=== PATIENT | female | born 1975 | race Two or more races ===

== ENCOUNTER 2017-12-04 18:13 | Emergency (ER) | payer OTHER ==
[2017-12-04 18:31] LABS: URINE APPEARANCE Clear; URINE BILIRUBIN Negative (NEGATIVE); URINE COLOR Yellow; URINE GLUCOSE (UA) Negative (NEGATIVE); URINE KETONE Trace (NEGATIVE); URINE NITRITE Negative (NEGATIVE); URINE PROTEIN Trace (NEGATIVE); URINE UROBILINOGEN 0.2 (0.2-1.0)
[2017-12-04 18:32] LABS: URINE LEUK ESTERASE TRACE (NEGATIVE)
[2017-12-04 18:43] LABS: EPI CELLS FEW /HPF; URINE BACTERIA FEW /hpf (NEGATIVE)
[2017-12-04 18:44] VITALS: BP 138/88; TEMP 98.9; BMI 24.3
[2017-12-04] MEDS ORDERED: ACETAMINOPHEN 325 MG TABLET (FP) PO ONE (18:44)
[2017-12-04] MEDS ORDERED: SODIUM CHLORIDE 1,000 ML IV ONE (18:44)
--- NOTE | 2017-12-04 18:48 | PDOC ---
Attending Attestation - HPI HPI: 12/04/17 19:12 The patient is a 41 year old female, with a significant PMH of chronic back pain, who presents to the emergency department with an onset of left intermittent flank pain that began yesterday. The patient states she has had 5- 6 episodes since yesterday that lasted for a few seconds with a severity of 7/ 10. The patient also notes she has been constipated and has been urinating more frequently. Her last menstrual period was 11/28/2017. The patient denies chest pain, shortness of breath, headache and dizziness. Denies fever, chills, nausea, vomit, diarrhea. Denies dysuria, urgency and hematuria. Allergies: NKDA Past surgical history: C- section (6 years ago) Social history: None reported PCP: Evin Taylor Documentation prepared by Nancy Raman, acting as medical staff credentialing coordinator for Ramon Bassett MD. <Nancy Raman - Last Filed: 12/04/17 19:12> - Resident Resident Name: Fox Richardson - ED Attending Attestation I have performed the following: I have examined & evaluated the patient, The case was reviewed & discussed with the resident, I agree w/resident's findings & plan, Exceptions are as noted - Physicial Exam PE: 12/04/17 19:11 GENERAL: The patient is awake, alert, and fully oriented, Nontoxic - in no acute distress. HEAD: Normocephalic, atraumatic. EYES: extraocular movements intact, sclera anicteric, conjunctiva clear. ENT: Normal voice, Moist mucous membranes. NECK: Normal range of motion, supple LUNGS: Breath sounds equal, clear to auscultation bilaterally. No wheezes, no rhonchi, no rales. HEART: tachycardic, normal S1 and S2 without murmur, rub or gallop. ABDOMEN: Soft, nontender, No guarding, no rebound. No CVA tenderness EXTREMITIES: Normal range of motion, no edema. NEUROLOGICAL: No facial assymetry, Normal speech, PSYCH: anxious appearing SKIN: Warm, Dry, normal turgor, - Medical Decision Making 12/04/17 19:09 suspect kidney stones pts HR elevated, suspect kindey stone UA noted for hematuria will get blood work to further evlauat her tachycadia - but suspect it may be due to anxiety as pt seemed very concerned about the reason for her hematuria will obtain CT abdomen fluids for hydration tylenol for pain will sign pt out to dr. remy for reasessment and fu <Ramon Bassett - Last Filed: 12/04/17 19:13> Heart Score/ECG Review - ECG Impressions Comment:: 12/04/17 19:13 Twelve-lead EKG was performed and reviewed by me. There is normal sinus rhythm with a rate of 114 The axis is normal. The intervals are normal. There is normal R wave progression There are no ST or T wave abnormalities Impression: sinus tachycardia <Ramon Bassett - Last Filed: 12/04/17 19:13>
[2017-12-04] MEDS ORDERED: ACETAMINOPHEN 325 MG TABLET (FP) ONE (18:56)
[2017-12-04 19:15] LABS: BASO % 1.7 % (0-2.0); EOS % 2.8 % (0-4.5); HEMATOCRIT 36.7 % (32.4-45.2); HEMOGLOBIN 11.9 GM/dl (10.7-15.3); LYMPH % 32.5 % (8-40); MCH 26.8 pg (25.7-33.7); MCHC 32.3 g/dl (32.0-36.0); MEAN CELL VOLUME 82.9 fl (80-96); MEAN PLT VOLUME 8.7 fl (7.5-11.1); MONO % 6.8 % (3.8-10.2); NEUT % 56.2 % (42.8-82.8); PLATELET COUNT 330 K/MM3 (134-434); RBC 4.43 M/mm3 (3.60-5.2); WHITE BLOOD COUNT 5.4 K/mm3 (4.0-10.8)
--- NOTE | 2017-12-04 19:17 | PDOC ---
History of Present Illness - General Chief Complaint: Pain Stated Complaint: LEFT LOW BACK, SIDE PAIN Time Seen by Provider: 12/04/17 18:20 History Source: Patient Exam Limitations: No Limitations - History of Present Illness Initial Comments: 12/04/17 19:16 Ms. Candelaria is a 41 yo F with a hx of chronic low back pain who presents with left flank pain. She states the pain began yesterday with sudden onset. The pain lasts for a few seconds and occurs in the left flank without radiation to the groin. Today it is 7/10 whereas yesterday it was 8/10. It occurs approximately half a dozen times throughout the day without aggravating or relieving factors. Endorses having constipation and polyuria. Denies the following: fever, recent visual changes, headaches, nausea, vomiting, chest pain , SOB, anterior abdominal pain, dysuria, hematuria, hematochezia, melena, diarrhea, and leg pain/swelling. Pmhx: Chronic low back pain Shx: C/S 1999 Meds: None Allergies: NKDA Social: Denies tobacco, alcohol, and drug use. 12/04/17 19:17 12/04/17 22:07 Past History - Past Medical History Allergies/Adverse Reactions: Allergies Allergy/AdvReac Type Severity Reaction Status Date / Time No Known Allergies Allergy Verified 12/04/17 18:15 Home Medications: Ambulatory Orders NK [No Known Home Medication] 12/04/17 COPD: No - Suicide/Smoking/Psychosocial Hx Smoking History: Never smoked Have you smoked in the past 12 months: No Number of Cigarettes Smoked Daily: 0 Information on smoking cessation initiated: No Hx Alcohol Use: No Drug/Substance Use Hx: No Substance Use Type: None Review of Systems - Review of Systems Constitutional: No: Chills, Diaphoresis, Fever, Weakness HEENTM: No: Eye Pain, Recent change in vision, Nose Pain, Throat Pain, Mouth Pain Respiratory: No: Cough, Shortness of Breath Cardiac (ROS): No: Chest Pain, Palpitations, Syncope, Chest Tightness ABD/GI: Yes: Constipated. No: Diarrhea, Nausea, Poor Appetite, Poor Fluid Intake, Rectal Bleeding, Vomiting, Abdominal cramping, Tarry Stools : Yes: Frequency, Flank Pain (left). No: Burning, Dysuria, Hematuria, Incontinence Musculoskeletal: Yes: Back Pain Integumentary: No: Pallor, Rash Neurological: No: Headache, Numbness, Paresthesia, Tremors, Weakness, Ataxia, Dizziness Psychiatric: No: Stressors Endocrine: No: Unexplained Weight Gain Hematologic/Lymphatic: No: Anemia *Physical Exam - Vital Signs Last Vital Signs Temp Pulse Resp BP Pulse Ox 98.9 F 118 H 20 138/88 100 12/04/17 18:13 12/04/17 18:13 12/04/17 18:13 12/04/17 18:13 12/04/17 18:13 - Physical Exam General Appearance: Yes: Nourished, Appropriately Dressed HEENT: positive: EOMI, CHLOE Neck: positive: Trachea midline. negative: Lymphadenopathy (R), Lymphadenopathy (L) Respiratory/Chest: positive: Lungs Clear, Normal Breath Sounds Cardiovascular: positive: Regular Rhythm, S1, S2, Tachycardia. negative: Systolic Murmur Vascular Pulses: Dorsalis-Pedis (R): 3+, Doralis-Pedis (L): 3+ Gastrointestinal/Abdominal: positive: Normal Bowel Sounds. negative: Tender Lymphatic: negative: Adenopathy Musculoskeletal: positive: Normal Inspection, CVA Tenderness (L). negative: CVA Tenderness (R) Extremity: positive: Normal Capillary Refill, Normal Inspection, Normal Range of Motion Integumentary: positive: Normal Color, Dry, Warm Neurologic: positive: city comptroller II-XII NML intact, Fully Oriented, Alert, Normal Mood/ Affect, Normal Response, Motor Strength 5/5 ED Treatment Course - LABORATORY CBC & Chemistry Diagram: 12/04/17 19:00 12/04/17 19:00 - ADDITIONAL ORDERS Additional order review: Laboratory Results 12/04/17 12/04/17 18:21 18:21 Urine Color Yellow Urine Appearance Clear Urine pH 6.0 Ur Specific [place] >= 1.030 H Urine Protein Trace Urine Glucose (UA) Negative Urine Ketones Trace Urine Blood 1+ H Urine Nitrite Negative Urine Bilirubin Negative Urine Urobilinogen 0.2 Ur Leukocyte Esterase Trace H Urine RBC 2-5 Urine WBC 2-5 Ur Epithelial Cells Few Urine Bacteria Few Urine HCG, Qual Negative - RADIOLOGY Radiology Studies Ordered: Category Date Time Status ABDOMEN & PELVIS CT W/O CONTR [CT] Stat CT Scan 12/04/17 18:53 Ordered - Medications Given in the ED: ED Medications Discontinued Medications Generic Name Dose Route Start Last Admin Trade Name Freq PRN Reason Stop Dose Admin Acetaminophen 975 mg 12/04/17 18:44 12/04/17 19:05 Tylenol - PO 12/04/17 18:45 975 mg ONCE ONE Administration Medical Decision Making - Medical Decision Making 41 yo F with hx of chronic back pain presenting with left flank pain concerning for nephrolithiasis. Initial vitals Initial Vital Signs Temp Pulse Resp BP Pulse Ox 98.9 F 118 H 20 138/88 100 12/04/17 18:13 12/04/17 18:13 12/04/17 18:13 12/04/17 18:13 12/04/17 18:13 Work up: Laboratory Tests 12/04/17 12/04/17 12/04/17 18:21 18:21 19:00 WBC 5.4 RBC 4.43 Hgb 11.9 Hct 36.7 MCV 82.9 MCH 26.8 MCHC 32.3 RDW 14.0 Plt Count 330 MPV 8.7 Absolute Neuts (auto) 3.0 Neutrophils % 56.2 Lymphocytes % 32.5 Monocytes % 6.8 Eosinophils % 2.8 Basophils % 1.7 Sodium Potassium Chloride Carbon Dioxide Anion Gap BUN Creatinine Creat Clearance w eGFR Random Glucose Calcium Total Bilirubin AST ALT Alkaline Phosphatase Total Protein Albumin Urine Color Yellow Urine Appearance Clear Urine pH 6.0 Ur Specific [place] >= 1.030 H Urine Protein Trace Urine Glucose (UA) Negative Urine Ketones Trace Urine Blood 1+ H Urine Nitrite Negative Urine Bilirubin Negative Urine Urobilinogen 0.2 Ur Leukocyte Esterase Trace H Urine RBC 2-5 Urine WBC 2-5 Ur Epithelial Cells Few Urine Bacteria Few Urine HCG, Qual Negative 12/04/17 19:00 WBC RBC Hgb Hct MCV MCH MCHC RDW Plt Count MPV Absolute Neuts (auto) Neutrophils % Lymphocytes % Monocytes % Eosinophils % Basophils % Sodium 136 Potassium 3.6 Chloride 104 Carbon Dioxide 23 Anion Gap 9 BUN 19 H Creatinine 0.8 Creat Clearance w eGFR > 60 Random Glucose 125 H Calcium 8.8 Total Bilirubin 0.3 AST 21 ALT 13 Alkaline Phosphatase 50 Total Protein 8.1 Albumin 3.9 Urine Color Urine Appearance Urine pH Ur Specific [place] Urine Protein Urine Glucose (UA) Urine Ketones Urine Blood Urine Nitrite Urine Bilirubin Urine Urobilinogen Ur Leukocyte Esterase Urine RBC Urine WBC Ur Epithelial Cells Urine Bacteria Urine HCG, Qual Ordered a CT abdomen and pelvis without contrast due to presence of blood in the UA. Concerned initially for the tachycardia, but patient admits to extreme anxiety in healthcare settings. Was given 1 L of NS and tylenol for pain control. 12/04/17 19:19 Transfer of care to Dr. Kat. *DC/Admit/Observation/Transfer Diagnosis at time of Disposition: Flank pain - Discharge Dispostion Disposition: HOME Condition at time of disposition: Stable - Referrals Referrals: Evin Taylor MD [Primary Care Provider] - 1 week - Patient Instructions Printed Discharge Instructions: DI for Flank Pain Additional Instructions: Drink plenty of water Ibuprofen/naproxen/acetaminophen as needed for persistent pain Return to ER if you have persistent severe pain We will call you if urine culture indicates bladder infection Follow-up with within the next week - Post Discharge Activity
--- NOTE | 2017-12-04 19:21 | PDOC ---
*Physical Exam - Vital Signs Last Vital Signs Temp Pulse Resp BP Pulse Ox 98.9 F 118 H 20 138/88 100 12/04/17 18:13 12/04/17 18:13 12/04/17 18:13 12/04/17 18:13 12/04/17 18:13 ED Treatment Course - LABORATORY CBC & Chemistry Diagram: 12/04/17 19:00 12/04/17 19:00 - ADDITIONAL ORDERS Additional order review: Laboratory Results 12/04/17 12/04/17 18:21 18:21 Urine Color Yellow Urine Appearance Clear Urine pH 6.0 Ur Specific [place] >= 1.030 H Urine Protein Trace Urine Glucose (UA) Negative Urine Ketones Trace Urine Blood 1+ H Urine Nitrite Negative Urine Bilirubin Negative Urine Urobilinogen 0.2 Ur Leukocyte Esterase Trace H Urine RBC 2-5 Urine WBC 2-5 Ur Epithelial Cells Few Urine Bacteria Few Urine HCG, Qual Negative 12/04/17 19:00 RBC 4.43 MCV 82.9 MCHC 32.3 RDW 14.0 MPV 8.7 Neutrophils % 56.2 Lymphocytes % 32.5 Monocytes % 6.8 Eosinophils % 2.8 Basophils % 1.7 - Medications Given in the ED: ED Medications Discontinued Medications Generic Name Dose Route Start Last Admin Trade Name Freq PRN Reason Stop Dose Admin Acetaminophen 975 mg 12/04/17 18:44 12/04/17 19:05 Tylenol - PO 12/04/17 18:45 975 mg ONCE ONE Administration Progress Note - Progress Note Progress Note: Care of this patient received from . Laboratory evaluation including CBC and chemistry profile is essentially normal except for mild prerenal azotemia with BUN of 19 and a creatinine of 1.1 Abdominal/pelvic CT performed to rule out kidney stone CT shows no evidence of hydronephrosis or hydroureter. No evidence of kidney stones present. No other abnormality seen Results discussed with the patient and her . Although patient may have had a small stone pass without causing hydro-nephrosis /ureter, it is more likely that the pain may be related to musculoskeletal strain. Because of the RBCs/WBCs seen on urinalysis, urine culture and sensitivity was sent. Patient is aware that urine culture and sensitivity takes at least 48 hours to complete and that she will be called, with antibiotic transmitted to pharmacy if there is evidence of UTI Patient discharged with instructions to drink plenty of water; she can take over -the-counter NSAIDs or acetaminophen as needed for pain. She should return to the emergency room if she has persistent, severe pain. She should follow-up with Dr. Taylor within the next week *DC/Admit/Observation/Transfer Diagnosis at time of Disposition: Flank pain - Discharge Dispostion Disposition: HOME Condition at time of disposition: Stable - Referrals Referrals: Evin Taylor MD [Primary Care Provider] - 1 week - Patient Instructions Printed Discharge Instructions: DI for Flank Pain Additional Instructions: Drink plenty of water Ibuprofen/naproxen/acetaminophen as needed for persistent pain Return to ER if you have persistent severe pain We will call you if urine culture indicates bladder infection Follow-up with within the next week - Post Discharge Activity
[2017-12-04 19:29] LABS: ALBUMIN 3.9 g/dl (3.5-5.0); ALK PHOS 50 U/L (32-92); ANION GAP 9 MMOL/L (8-16); BILIRUBIN,TOTAL 0.3 mg/dl (0.2-1.0); BLOOD UREA NITROGEN 19 mg/dl (7-18); CALCIUM 8.8 mg/dl (8.4-10.2); CHLORIDE 104 mmol/L (98-107); CO2 23 mmol/L (22-28); CREATININE 0.8 mg/dl (0.6-1.3); GLUCOSE,RANDOM 125 mg/dl (74-106); POTASSIUM 3.6 mmol/L (3.5-5.1); SGOT/AST 21 U/L (10-42); SGPT/ALT 13 U/L (10-40); SODIUM 136 mmol/L (136-145); TOT PROT 8.1 g/dl (6.4-8.3)
[2017-12-04 20:58] VITALS: PULSE 90
--- NOTE | 2017-12-06 14:15 | EKG ---
Test Reason : Blood Pressure : / mmHG Vent. Rate : 114 BPM Atrial Rate : 114 BPM P-R Int : 134 ms QRS Dur : 080 ms QT Int : 344 ms P-R-T Axes : 070 043 022 degrees QTc Int : 474 ms SINUS TACHYCARDIA POSSIBLE LEFT ATRIAL ENLARGEMENT BORDERLINE ECG WHEN COMPARED WITH ECG OF 05-NOV-2007 20:18, NO SIGNIFICANT CHANGE WAS FOUND Confirmed by WILLIAM VEGA MD ([id number]) on 12/06/2017 2:15:32 PM Referred By: SERGEY Confirmed By:WILLIAM VEGA MD
== END 2017-12-04 20:58 | disposition home or self-care (01) ==
LOC: FER 18:13
PROC: 3E0337Z Introduction of Electrolytic and Water Balance Substance into Peripheral Vein, Percutaneous Approach (ICD-10-PCS; principal; 2017-12-04)
DX: R10.32 Left lower quadrant pain (principal)
CPT/HCPCS: 36415; 74176-TC; 80053; 81003; 81015; 84703; 85025; 87086; 93005; 99285-25; J7030

== ENCOUNTER 2018-07-18 16:03 | Emergency (ER) | payer OTHER ==
--- NOTE | 2018-07-18 16:08 | PDOC ---
History of Present Illness - General Chief Complaint: Respiratory Stated Complaint: 4-5 DAY HISTORY OF SINUS CONGESTION AND COUGH Time Seen by Provider: 07/18/18 16:07 - History of Present Illness Initial Comments: 07/18/18 16:14 42 year old woman with a history of chronic back pain and asthma who presents with 4 dyas of frontal sinus pressure and nasal congestion. With some chest tightness influenza 1 month ago Past History - Past Medical History Allergies/Adverse Reactions: Allergies Allergy/AdvReac Type Severity Reaction Status Date / Time No Known Allergies Allergy Verified 07/18/18 16:05 Home Medications: Ambulatory Orders Oxymetazoline 0.05% Nasal Soln [Afrin -] 1 spray NS ONCE #1 spraybtl 07/18/18 Salmeterol/Fluticasone [Advair 100Mcg/50Mcg -] 1 puff IH BID 07/18/18 COPD: No - Suicide/Smoking/Psychosocial Hx Smoking History: Never smoked Have you smoked in the past 12 months: No Number of Cigarettes Smoked Daily: 0 Hx Alcohol Use: No Drug/Substance Use Hx: No Substance Use Type: None *Physical Exam - Physical Exam Comments: 07/18/18 17:17 frontal sinus pressure negative exam *DC/Admit/Observation/Transfer Diagnosis at time of Disposition: Viral URI - Discharge Dispostion Disposition: HOME Condition at time of disposition: Stable Decision to Admit order: No - Prescriptions Prescriptions: Oxymetazoline 0.05% Nasal Soln [Afrin -] 1 spray NS ONCE #1 spraybtl - Referrals Referrals: Evin Taylor MD [Primary Care Provider] - Jordan Varner MD [Staff Physician] - - Patient Instructions Additional Instructions: You were seen in the Emergency Department for sinus pain/ pressure You were treated with nasal spray and nebulizer and showed symptomatic relief. You were prescribed Afrin nasal spray to a maximum of twice a day. Use over the counter Neti Pot for rinsing of the sinuses. You were given a referral to ENT specialty and advised to follow up if symptoms persist beyond 2 weeks. Return to the ED if you experience worsening sinus pain, thick nasal discharge, fevers, worsening headache, difficulty breathing or chest pain. - Post Discharge Activity
[2018-07-18 16:17] VITALS: BP 142/89; PULSE 138; TEMP 98.3; BMI 26.4
[2018-07-18] MEDS ORDERED: SODIUM CHLORIDE FOR INHALATION 3 ML VIAL.NEB IH ONE (16:56)
[2018-07-18] MEDS ORDERED: OXYMETAZOLINE 0.05% NASAL SOLUTION 15 ML BOTTLE NS ONE ×2 (16:56→16:57)
--- NOTE | 2018-07-18 17:10 | PDOC ---
Attending Attestation - Resident Resident Name: Lily Danielle - ED Attending Attestation I have performed the following: I have examined & evaluated the patient, The case was reviewed & discussed with the resident, I agree w/resident's findings & plan, Exceptions are as noted - HPI HPI: 07/18/18 17:48 Reviewed residents HPI - Physicial Exam PE: 07/18/18 17:48 Reviewed Resident PE - Medical Decision Making 07/18/18 17:48 42 years old with no significant past medical history presents emergency Department with URI/sinusitis type symptoms Patient noticeably anxious states she does get anxious 1 visiting the emergency department her heart rate was similar last visit as well She is well-appearing she is in no apparent distress her neck is supple she is complaining of runny nose sinus pressure sore throat cough congestion her physical exam is unremarkable except for some sinus tenderness to palpation Status post saline at and Afrin nasal spray she feels better we'll recommend Afrin 3 days and Priscilla pot at home Findings, the need for follow-up and strict return instructions discussed with patient.
--- NOTE | 2018-07-19 15:04 | EKG ---
Test Reason : Blood Pressure : / mmHG Vent. Rate : 130 BPM Atrial Rate : 130 BPM P-R Int : 140 ms QRS Dur : 076 ms QT Int : 318 ms P-R-T Axes : 068 045 029 degrees QTc Int : 467 ms SINUS TACHYCARDIA OTHERWISE NORMAL ECG WHEN COMPARED WITH ECG OF 04-DEC-2017 18:44, T WAVE INVERSION NO LONGER EVIDENT IN ANTERIOR LEADS Confirmed by Stanley Carrillo ([id number]) on 07/19/2018 3:04:02 PM Referred By: DULCE Confirmed By:Stanley Carrillo
== END 2018-07-18 17:32 | disposition home or self-care (01) ==
LOC: FER 16:03
PROC: 3E0337Z Introduction of Electrolytic and Water Balance Substance into Peripheral Vein, Percutaneous Approach (ICD-10-PCS; principal; 2018-07-18)
DX: J06.9 Acute upper respiratory infection, unspecified (principal)
CPT/HCPCS: 93005; 99283-25

== ENCOUNTER 2018-09-20 00:47 | Emergency (ER) | payer OTHER | END 2018-09-20 01:05 | disposition home or self-care (01) | LOC: FER 00:47 ==

== ENCOUNTER 2020-02-29 08:37 | Emergency (ER) | payer OTHER ==
[2020-02-29] MEDS ORDERED: MAG HYDROX/AL HYDROX/SIMETH 30 ML UNIT-DOSE CUP PO ONE (09:07)
[2020-02-29] MEDS ORDERED: FAMOTIDINE 20 MG/50 ML IVPB 20 MG/50 ML MG IVPB ONE ×2 (09:07→10:27)
[2020-02-29] MEDS ORDERED: SODIUM CHLORIDE 0.9% 500 ML INFUS.BAG IV ONE ×2 (09:07→12:02)
[2020-02-29] MEDS ORDERED: MAG HYDROX/AL HYDROX/SIMETH 30 ML UNIT-DOSE CUP ONE (09:17)
[2020-02-29 09:22] VITALS: TEMP 98.7; BMI 23.9
[2020-02-29 09:27] LABS: BASO % 0.4 % (0-2.0); EOS % 1.7 % (0-4.5); HEMOGLOBIN 12.4 GM/dL (10.7-15.3); LYMPH % 9.5 % (8-40); MCHC 31.7 g/dl (32.0-36.0); MEAN PLT VOLUME 8.6 fl (7.5-11.1); MONO % 4.4 % (3.8-10.2); PLATELET COUNT 233 K/MM3 (134-434); RBC 4.94 M/mm3 (3.60-5.2); RDW 22.4 % (11.6-15.6); WHITE BLOOD COUNT 14.7 K/mm3 (4.0-10.0)
[2020-02-29 09:46] LABS: CHLORIDE 104 mmol/L (98-107); POTASSIUM 3.8 mmol/L (3.5-5.1); SODIUM 135 mmol/L (136-145)
[2020-02-29 09:48] LABS: ALBUMIN 3.6 g/dl (3.4-5.0); ANION GAP 8 MMOL/L (8-16); CO2 22 mmol/L (21-32); GLUCOSE,RANDOM 104 mg/dL (74-106); MAGNESIUM 2.2 mg/dL (1.8-2.4)
[2020-02-29 09:51] LABS: CREATININE 0.8 mg/dL (0.55-1.3); SGOT/AST 13 U/L (15-37); SGPT/ALT 15 U/L (13-61)
[2020-02-29 09:52] LABS: LIPASE 92 U/L (73-393)
[2020-02-29 09:53] LABS: TOT PROT 8.1 g/dl (6.4-8.2)
[2020-02-29 09:54] LABS: ALK PHOS 69 U/L (45-117)
[2020-02-29 09:58] LABS: BILIRUBIN,TOTAL 0.6 mg/dL (0.2-1)
[2020-02-29] MEDS ORDERED: LORazepam 2 MG TABLET PO ONE (10:23)
[2020-02-29] MEDS ORDERED: LORazepam 1 MG TABLET ONE (10:50)
[2020-02-29 11:37] LABS: EPI CELLS 6 /uL (0-25.1); HYALINE CASTS 0 /uL (0-3.1); URINE APPEARANCE CLEAR; URINE BACTERIA 50 /uL (0-1359); URINE BILIRUBIN NEGATIVE (NEGATIVE); URINE COLOR YELLOW; URINE GLUCOSE (UA) NEGATIVE (NEGATIVE); URINE KETONE 1+ (NEGATIVE); URINE LEUK ESTERASE NEGATIVE (NEGATIVE); URINE NITRITE NEGATIVE (NEGATIVE); URINE PROTEIN NEGATIVE (NEGATIVE); URINE RBC 22 /uL (0-23.9); URINE UROBILINOGEN 0.2 mg/dL (0.2-1.0); URINE WBC 8 /uL (0-25.8)
[2020-02-29 11:55] LABS: ANISOCYTOSIS 1+; MACROCYTOSIS 0; PLATELET ESTIMATE NORMAL
[2020-02-29] MEDS ORDERED: LORazepam 1 MG TABLET PO ONE ×2 (12:02)
[2020-02-29] MEDS ORDERED: LACTATED RINGERS SOLUTION 1000 ML INFUS.BAG IV ONE (12:02)
[2020-02-29] MEDS ORDERED: LORazepam 2 MG/ML SDV VIAL ONE (12:02)
[2020-02-29 12:32] LABS: YEAST NON SEEN (NEGATIVE)
[2020-02-29 13:13] LABS: URINE BARBITURATES NEGATIVE ng/ml (CUTOFF=200); URINE BENZODIAZEPINES NEGATIVE ng/ml (CUTOFF=200)
[2020-02-29 13:14] LABS: METHADONE, UR NEGATIVE ng/ml (CUTOFF=300); OPIATES, URI NEGATIVE ng/ml (CUTOFF=300); PHENCYCLIDINE,URINE NEGATIVE ng/ml (CUTOFF=25)
[2020-02-29 13:20] VITALS: BP 109/57; PULSE 127
[2020-02-29 14:02] LABS: COCAINE, UR NEGATIVE ng/ml (CUTOFF=300); URINE AMPHETAMINES NEGATIVE ng/ml (CUTOFF=500)
== END 2020-02-29 13:20 | disposition left against medical advice (07) ==
LOC: JER 08:37
PROC: 3E033NZ Introduction of Analgesics, Hypnotics, Sedatives into Peripheral Vein, Percutaneous Approach (ICD-10-PCS; principal; 2020-02-29)
PROC: 3E033GC Introduction of Other Therapeutic Substance into Peripheral Vein, Percutaneous Approach (ICD-10-PCS; 2020-02-29)
DX: K52.9 Noninfective gastroenteritis and colitis, unspecified (principal); R00.0 Tachycardia, unspecified; R10.13 Epigastric pain
CPT/HCPCS: 36415; 80053; 80307; 81003; 83690; 83735; 84443; 84484; 84703; 85025; 87086; 93005; 93010; 99285-25

== ENCOUNTER 2020-03-22 04:24 | Day surgery (SDC) | payer OTHER ==
[2020-03-20 15:59] VITALS: BMI 23.1
[2020-03-22] MEDS ORDERED: SUCCINYLCHOLINE CHLORIDE 200 MG/10 ML SYRINGE ONE (07:52)
[2020-03-22] MEDS ORDERED: MIDAZOLAM HCL 2 MG/2 ML SINGLE DOSE VIAL ONE (07:52)
[2020-03-22] MEDS ORDERED: DEXAMETHASONE SOD PHOSPHATE 4 MG/1 ML VIAL ONE (07:52)
[2020-03-22] MEDS ORDERED: PROPOFOL 20 ML ONE ×2 (07:52)
[2020-03-22] MEDS ORDERED: ONDANSETRON 4 MG/2 ML VIAL ONE (07:52)
[2020-03-22] MEDS ORDERED: IBUPROFEN 600 MG TABLET (FP) PO PRN (08:58)
[2020-03-22] MEDS ORDERED: oxyCODONE HCL 5 MG TABLET PO PRN (08:58)
[2020-03-22] MEDS ORDERED: ONDANSETRON 4 MG/2 ML VIAL IVPUSH PRN (08:58)
[2020-03-22] MEDS ORDERED: IBUPROFEN 800 MG/8 ML IJ IVPB PRN (08:58)
[2020-03-22] MEDS ORDERED: ELECTROLYTE-148 SOLN 1,000 ML IV SCH (09:00)
[2020-03-22] MEDS ORDERED: KETOROLAC TROMETHAMINE 30 MG/1 ML VIAL ONE (09:01)
[2020-03-22] MEDS ORDERED: LACTATED RINGERS SOLUTION 1,000 ML IV SCH (09:45)
[2020-03-22 11:04] VITALS: TEMP 97.1
[2020-03-22 15:19] VITALS: BP 109/72; PULSE 102
== END 2020-03-22 12:05 | disposition home or self-care (01) ==
LOC: JASU-SURG 04:24
PROVIDERS: ATTEND Obstetrics & Gynecology
PROC: 0UC98ZZ Extirpation of Matter from Uterus, Via Natural or Artificial Opening Endoscopic (ICD-10-PCS; principal; 2020-03-22 08:00)
PROC: 0UDB8ZX Extraction of Endometrium, Via Natural or Artificial Opening Endoscopic, Diagnostic (ICD-10-PCS; 2020-03-22 08:00)
DX: D25.0 Submucous leiomyoma of uterus (principal); N84.0 Polyp of corpus uteri; N92.1 Excessive and frequent menstruation with irregular cycle
CPT/HCPCS: 84703; 88305-TC; 94760

== ENCOUNTER 2020-06-18 09:30 | Inpatient (IN) | payer OTHER ==
[2020-07-15 09:16] VITALS: BMI 23.7
[2020-07-16] MEDS ORDERED: BUPIVACAINE LIPOSOME/PF (EXPAREL) 266 MG/20 ML VIAL ONE (11:13)
[2020-07-16] MEDS ORDERED: MIDAZOLAM HCL 2 MG/2 ML SINGLE DOSE VIAL ONE ×2 (11:15)
[2020-07-16] MEDS ORDERED: fentaNYL CITRATE 250 MCG/5 ML VIAL ONE (12:44)
[2020-07-16] MEDS ORDERED: ceFAZolin 2 GRAM PREMIX BAG IVPB ONE (12:55)
[2020-07-16] MEDS ORDERED: GLYCOPYRROLATE 0.2 MG/1 ML VIAL ONE (13:21)
[2020-07-16] MEDS ORDERED: NEOSTIGMINE METHYLSULFATE 0.5 MG/ML - 10 ML MDV ONE (13:25)
[2020-07-16] MEDS ORDERED: PROPOFOL 20 ML ONE (14:06)
[2020-07-16] MEDS ORDERED: HYDROmorphone HCl 2 MG/ML VIAL ONE (14:06)
[2020-07-16] MEDS ORDERED: ONDANSETRON 4 MG/2 ML VIAL IVPUSH PRN ×2 (14:23→14:26)
[2020-07-16] MEDS ORDERED: ELECTROLYTE-148 SOLN 1,000 ML IV SCH ×2 (14:30)
[2020-07-16] MEDS ORDERED: IBUPROFEN 800 MG/8 ML IJ IVPB ONE ×2 (15:24→15:36)
[2020-07-16] MEDS: CEFAZOLIN 2 GM in DEXTROSE 5%-WATER - 100 ML IVPB SCH ×2 (18:02→18:18)
[2020-07-16] MEDS ORDERED: oxyCODONE HCL 5 MG TABLET PO PRN (18:30)
[2020-07-16] MEDS ORDERED: BISACODYL 5 MG TABLET.DR (FP) PO PRN (18:31)
[2020-07-16] MEDS: IBUPROFEN 800 MG/8 ML IJ IVPB PRN (20:08)
[2020-07-17] MEDS: CEFAZOLIN 2 GM/D5W 2 GM/50 ML ML IVPB SCH ×3 (01:14→18:06)
[2020-07-17] MEDS: IBUPROFEN 800 MG/8 ML IJ IVPB PRN (02:03)
[2020-07-17 08:32] LABS: BASO % 0.6 % (0-2.0); EOS % 0.2 % (0-4.5); HEMATOCRIT 29.4 % (32.4-45.2); HEMOGLOBIN 9.7 GM/dL (10.7-15.3); LYMPH % 16.9 % (8-40); MCHC 33.2 g/dl (32.0-36.0); MEAN CELL VOLUME 78.3 fl (80-96); MEAN PLT VOLUME 8.2 fl (7.5-11.1); MONO % 7.1 % (3.8-10.2); NEUT % 75.2 % (42.8-82.8); PLATELET COUNT 249 K/MM3 (134-434); RBC 3.75 M/mm3 (3.60-5.2); RDW 15.8 % (11.6-15.6)
[2020-07-17] MEDS: ACETAMINOPHEN 325 MG TABLET (FP) PO PRN ×3 (08:32→20:10)
[2020-07-17] MEDS: oxyCODONE HCL 5 MG TABLET PO PRN ×2 (08:32→16:11)
[2020-07-17 08:53] LABS: BLOOD UREA NITROGEN 8.2 mg/dL (7-18)
[2020-07-17 08:54] LABS: CREATININE 0.6 mg/dL (0.55-1.3)
[2020-07-17] MEDS: ENOXAPARIN NA (PORCINE) 40 MG/0.4 ML DISP.SYRIN SQ SCH (09:34)
[2020-07-17] MEDS: IBUPROFEN 600 MG TABLET (FP) PO PRN ×2 (13:44→20:11)
[2020-07-17] MEDS: SIMETHICONE 80 MG TAB.CHEW (FP) PO PRN (20:10)
[2020-07-18] MEDS: CEFAZOLIN 2 GM/D5W 2 GM/50 ML ML IVPB SCH ×2 (02:13→09:10)
[2020-07-18] MEDS: ACETAMINOPHEN 325 MG TABLET (FP) PO PRN (08:37)
[2020-07-18] MEDS: SIMETHICONE 80 MG TAB.CHEW (FP) PO PRN (08:38)
[2020-07-18] MEDS: IBUPROFEN 600 MG TABLET (FP) PO PRN (08:38)
[2020-07-18] MEDS: ENOXAPARIN NA (PORCINE) 40 MG/0.4 ML DISP.SYRIN SQ SCH (09:10)
[2020-07-18 09:57] VITALS: BP 110/77; PULSE 100; TEMP 97.7
== END 2020-07-18 14:20 | disposition home or self-care (01) | DRG 513 ==
LOC: J2C 07-16 04:29 → J3W 07-16 17:40
PROVIDERS: ADMIT Obstetrics & Gynecology; ATTEND Obstetrics & Gynecology
PROC: 0UT70ZZ Resection of Bilateral Fallopian Tubes, Open Approach (ICD-10-PCS; 2020-07-16)
PROC: 0UT90ZL Resection of Uterus, Supracervical, Open Approach (ICD-10-PCS; principal; 2020-07-16 11:00)
DX: N92.1 Excessive and frequent menstruation with irregular cycle (principal); D25.9 Leiomyoma of uterus, unspecified; R10.2 Pelvic and perineal pain
CPT/HCPCS: 36415; 80048; 84703; 85025; 86850; 86900; 86901; 86922; 88307-TC; 94010; 94760

== ENCOUNTER 2020-07-30 23:43 | Emergency (ER) | payer OTHER ==
[2020-07-30 23:53] VITALS: BP 150/86; TEMP 98.1; BMI 23.6
[2020-07-31] MEDS ORDERED: KETOROLAC TROMETHAMINE 30 MG/1 ML VIAL IVPUSH ONE (00:13)
[2020-07-31] MEDS ORDERED: SODIUM CHLORIDE 1,000 ML IV STA (00:13)
[2020-07-31] MEDS ORDERED: PANTOPRAZOLE SODIUM 40 MG VIAL IVPB ONE (00:14)
[2020-07-31] MEDS ORDERED: MAG HYDROX/AL HYDROX/SIMETH 30 ML UNIT-DOSE CUP PO ONE (00:14)
[2020-07-31] MEDS ORDERED: MAG HYDROX/AL HYDROX/SIMETH 30 ML UNIT-DOSE CUP ONE (00:29)
[2020-07-31] MEDS ORDERED: KETOROLAC TROMETHAMINE 30 MG/1 ML VIAL ONE (00:29)
[2020-07-31] MEDS ORDERED: PANTOPRAZOLE SODIUM 40 MG VIAL ONE (00:30)
[2020-07-31 01:12] LABS: BASO % 0.9 % (0-2.0); EOS % 2.3 % (0-4.5); HEMATOCRIT 33.1 % (32.4-45.2); HEMOGLOBIN 10.6 GM/dL (10.7-15.3); MCH 25.5 pg (25.7-33.7); MEAN CELL VOLUME 79.7 fl (80-96); MEAN PLT VOLUME 8.8 fl (7.5-11.1); MONO % 5.8 % (3.8-10.2); PLATELET COUNT 367 K/MM3 (134-434); RBC 4.15 M/mm3 (3.60-5.2); RDW 16.4 % (11.6-15.6); WHITE BLOOD COUNT 9.8 K/mm3 (4.0-10.0)
[2020-07-31 01:49] LABS: CALCIUM 8.8 mg/dL (8.5-10.1)
[2020-07-31 01:51] LABS: ALBUMIN 3.6 g/dl (3.4-5.0); BLOOD UREA NITROGEN 13.4 mg/dL (7-18)
[2020-07-31 01:54] LABS: CREATININE 0.9 mg/dL (0.55-1.3)
[2020-07-31 01:56] LABS: BILIRUBIN,TOTAL 0.2 mg/dL (0.2-1)
[2020-07-31 02:10] VITALS: PULSE 120
== END 2020-07-31 02:11 | disposition home or self-care (01) ==
LOC: FER 23:43
PROC: 3E0333Z Introduction of Anti-inflammatory into Peripheral Vein, Percutaneous Approach (ICD-10-PCS; principal; 2020-07-30)
PROC: 3E033GC Introduction of Other Therapeutic Substance into Peripheral Vein, Percutaneous Approach (ICD-10-PCS; 2020-07-30)
PROC: 3E0337Z Introduction of Electrolytic and Water Balance Substance into Peripheral Vein, Percutaneous Approach (ICD-10-PCS; 2020-07-30)
DX: S29.011A Strain of muscle and tendon of front wall of thorax, initial encounter (principal); K21.9 Gastro-esophageal reflux disease without esophagitis
CPT/HCPCS: 36415; 80053; 85025; 99284-25

== ENCOUNTER 2022-01-26 23:33 | Emergency (ER) | payer OTHER ==
[2022-01-26 23:41] VITALS: BP 147/81; PULSE 148; RESP 20; TEMP 99; BMI 21.9
[2022-01-26] MEDS ORDERED: diphenhydrAMINE HCL 25 MG CAPSULE (FP) PO ONE (23:43)
== END 2022-01-26 23:53 | disposition home or self-care (01) ==
LOC: FER 23:33
DX: T78.40XA Allergy, unspecified, initial encounter (principal)
CPT/HCPCS: 99283-25

== ENCOUNTER 2023-05-06 21:56 | Emergency (ER) | payer OTHER ==
[2023-05-06 22:13] VITALS: BP 120/76; PULSE 110; RESP 16; TEMP 98.7; BMI 20.7
[2023-05-06] MEDS ORDERED: IBUPROFEN 600 MG TABLET (FP) PO ONE ×2 (22:29→22:33)
[2023-05-06] MEDS ORDERED: CEFUROXIME AXETIL 500 MG TABLET PO ONE (22:30)
[2023-05-06] MEDS ORDERED: CEFUROXIME AXETIL 500 MG TABLET ONE (22:33)
== END 2023-05-06 22:38 | disposition home or self-care (01) ==
LOC: FER 21:56
DX: N39.0 Urinary tract infection, site not specified (principal); R35.0 Frequency of micturition; R30.9 Painful micturition, unspecified; R39.11 Hesitancy of micturition
CPT/HCPCS: 81003; 81015; 87086; 99283-25

== ENCOUNTER 2023-06-19 23:30 | Emergency (ER) | payer OTHER ==
[2023-06-19 23:53] VITALS: BP 151/86; PULSE 127; RESP 18; TEMP 99
[2023-06-20] MEDS ORDERED: IBUPROFEN 600 MG TABLET (FP) PO ONE (00:43)
[2023-06-20] MEDS: IBUPROFEN 600 MG TABLET (FP) PO ONE (00:46)
[2023-06-20] MEDS ORDERED: PHENAZOPYRIDINE HCL 100 MG TABLET (FP) ONE (01:04)
[2023-06-20] MEDS: PHENAZOPYRIDINE HCL 100 MG TABLET (FP) PO ONE (01:17)
[2023-06-20 01:52] LABS: EPI CELLS 4 /uL (0-25.1); HYALINE CASTS 0 /uL (0-3.1); PH,URINE 6.5 (5.0-8.0); URINE APPEARANCE CLEAR; URINE BACTERIA 8 /uL (0-1359); URINE BILIRUBIN NEGATIVE (NEGATIVE); URINE COLOR YELLOW; URINE GLUCOSE (UA) NEGATIVE (NEGATIVE); URINE KETONE NEGATIVE (NEGATIVE); URINE LEUK ESTERASE TRACE (NEGATIVE); URINE NITRITE NEGATIVE (NEGATIVE); URINE PROTEIN NEGATIVE (NEGATIVE); URINE RBC 7 /uL (0-23.9); URINE UROBILINOGEN 0.2 mg/dL (0.2-1.0); URINE WBC 2 /uL (0-25.8)
== END 2023-06-20 01:23 | disposition home or self-care (01) ==
LOC: FER 23:30
DX: R35.0 Frequency of micturition (principal); M54.50 Low back pain, unspecified
CPT/HCPCS: 81003; 87086; 99283-25

== ENCOUNTER 2024-07-18 04:10 | Emergency (ER) | payer OTHER ==
[2024-07-18 04:15] VITALS: BP 143/83; RESP 18; TEMP 98.4; BMI 21.0
[2024-07-18] MEDS ORDERED: KETOROLAC TROMETHAMINE 30 MG/1 ML VIAL ONE (04:37)
[2024-07-18] MEDS ORDERED: LIDOCAINE 5% TOPICAL PATCH ONE (04:37)
[2024-07-18] MEDS: KETOROLAC TROMETHAMINE 30 MG/1 ML VIAL IM ONE (04:43)
[2024-07-18] MEDS: LIDOCAINE 5% TOPICAL PATCH TP ONE (04:43)
[2024-07-18] MEDS ORDERED: ACETAMINOPHEN 325 MG TABLET (FP) ONE (04:47)
[2024-07-18] MEDS ORDERED: NAPROXEN 500 MG TABLET ONE (04:47)
[2024-07-18] MEDS: ACETAMINOPHEN 325 MG TABLET (FP) PO ONE (04:59)
[2024-07-18] MEDS: NAPROXEN 500 MG TABLET PO ONE (05:02)
[2024-07-18 05:25] LABS: EPI CELLS 9 /uL (0-25.1); HYALINE CASTS 0 /uL (0-3.1); PH,URINE 6.5 (5.0-8.0); URINE APPEARANCE CLEAR; URINE BACTERIA 390 /uL (0-1359); URINE BILIRUBIN NEGATIVE (NEGATIVE); URINE COLOR YELLOW; URINE GLUCOSE (UA) NEGATIVE (NEGATIVE); URINE KETONE NEGATIVE (NEGATIVE); URINE LEUK ESTERASE 2+ (NEGATIVE); URINE NITRITE NEGATIVE (NEGATIVE); URINE PROTEIN NEGATIVE (NEGATIVE); URINE RBC 19 /uL (0-23.9); URINE UROBILINOGEN 0.2 mg/dL (0.2-1.0); URINE WBC 97 /uL (0-25.8)
[2024-07-18 05:32] VITALS: PULSE 110
[2024-07-18] MEDS: SULFAMETHOXAZOLE/TRIMETHOPRIM 800MG/160MG D.S. TABLET PO ONE (05:33)
[2024-07-18] MEDS ORDERED: SULFAMETHOXAZOLE/TRIMETHOPRIM 800MG/160MG D.S. TABLET ONE (05:35)
[2024-07-18] MEDS ORDERED: LIDOCAINE PATCH REMOVAL MC SCH (22:00)
== END 2024-07-18 05:42 | disposition home or self-care (01) ==
LOC: JER 04:10
DX: N30.01 Acute cystitis with hematuria (principal); M54.50 Low back pain, unspecified; N93.9 Abnormal uterine and vaginal bleeding, unspecified; R35.0 Frequency of micturition; R00.0 Tachycardia, unspecified
CPT/HCPCS: 81003; 87086; 99283-25